=== PATIENT | male | born 1975 | race Caucasian/White ===

== ENCOUNTER 2019-07-18 05:29 | Day surgery (SDC) | payer MEDICAID, SELFPAY ==
[2019-07-18] VITALS (11 sets, daily range): BP systolic 111–135; BP diastolic 64–78; PULSE 57–72; RESP 16–20; TEMP 36.3–36.6; O2SAT 96–100
--- NOTE | 2019-07-18 | XR_ITS ---
WS: [id number] Left ankle, AP and lateral in the OR, 07/18/2019 Clinical Data: ORIF LEFT ANKLE Comparison: Left ankle, 06/28/2019 Findings: 2 orthopedic screws have been inserted into the medial malleolus to reduce the fracture. XR/XR ankle LT 2V [id number] Impression: Insertion of 2 orthopedic screws to reduce left medial malleolar fracture.
--- NOTE | 2019-07-18 | SCC_ITS ---
Procedure Done: Open reduction internal fixation left medial malleolus fracture. 0.07 seconds of fluoroscopic guidance, for a cumulative dose of 0.114 mGy, was provided to Dr. Jones by the radiology department. C-arm images of the LEFT ankle were saved for the patient's permanent record. [facility]
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
--- NOTE | 2019-07-18 06:31 | ANES.PREANES ---
Pre-Anesthetic Assessment Pre-Anesthetic Assessment: Height/Weight: Height 1.8 m Temp Pulse Resp BP Pulse Ox 97.3 F L 72 16 118/73 96 07/18/19 06:00 07/18/19 06:00 07/18/19 06:00 07/18/19 06:00 07/18/19 06:00 Proposed Procedure: Operation Date: 07/18/19 07:20 Proposed Procedures p ORIF Ankle(Left) - Bienvenido Jones DPM Last intake: Intake Last Liquid Date 07/17/19 Last Liquid Time 18:00 Last Solid Date 07/17/19 Last Solid Time 17:00 Exam: Pre-Anes Outpt Exam: alert, oriented x 3, clear to auscultation bilaterally and regular rate & rhythm Airway: Submandibular: WNL Cervical ROM: WNL MP: 1 Additional comments: teeth OK Pulmonary: Pulmonary: None reported CV/HEM: CV/HEM: None reported Hepatic: Hepatic: None reported GI: GI: GERD Comments: not well controlled Metabolic: Metabolic: None reported Musc/skel: Musc/skel: None reported Neuropsych: Neuropsych: None reported Anesthetic Plan: ASA status: II Anesthesia: Anesthesia Evaluation and General Risk of > 500 ml blood loss (7ml/kg in children): No PFSH Anesthesia PFSH: Family History Father Heart disease Other Family history of cancer Social History Smoking and tobacco status: never smoked Alcohol intake: never Substance/Drug Use: never Data Anesthesia Cardiac Studies: No Data to Display
[2019-07-18] MEDS: sodium chloride 0.9% 1,000 ML 30 ML IV (06:47)
--- NOTE | 2019-07-18 06:49 | ANES.PREANES ---
Pre-Anesthetic Assessment Pre-Anesthetic Assessment: Height/Weight: Height 1.8 m Temp Pulse Resp BP Pulse Ox 97.3 F L 72 16 118/73 96 07/18/19 06:00 07/18/19 06:00 07/18/19 06:00 07/18/19 06:00 07/18/19 06:00 Proposed Procedure: Operation Date: 07/18/19 07:20 Proposed Procedures p ORIF Ankle(Left) - Bienvenido Jones DPM Last intake: Intake Last Liquid Date 07/17/19 Last Liquid Time 18:00 Last Solid Date 07/17/19 Last Solid Time 17:00 Meds/Allergies Current Medications: Current Medications Generic Name Dose Route Start Last Admin Trade Name Freq PRN Reason Stop Dose Admin Sodium Chloride 1,000 mls @ 30 ml s/hr 07/18/19 06:00 07/18/19 06:47 Sodium Chloride 0.9% IV 07/19/19 05:59 30 mls/hr .Q24H TYE Administration PFSH Anesthesia PFSH: Family History Father Heart disease Other Family history of cancer Social History Smoking and tobacco status: never smoked Alcohol intake: never Substance/Drug Use: never Data Anesthesia Cardiac Studies: No Data to Display
[2019-07-18] MEDS: morphine 4 mg/mL SDV 1 mL 2 MG IVP (08:22)
[2019-07-18] MEDS: oxyCODONE-APAP 5-325 mg Tablet 1 TAB PO (09:15)
--- NOTE | 2019-07-18 09:46 | SUR.PHASEI ---
0814 PT TO PACU PER CART PT SLEEPY WITH GOOD RESP PT AWAKES , SAYS YES TO PAIN BUT UNABLE TO UNDERSTAND SCALE FACE SCALE USED PT QUICKLY BACK TO SLEEP VSS 0851 PT ALERT ON RA PT C/O OF PAIN FACE SCALE USED PT SMILING , WANTS JUICE TO DRINK, PT TO OPS AWAKE ALERT VSS.DISTAL TOES PINK WARM WITH CAP REFILL LESS THAN 3 SECONDS
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
== END 2019-07-18 10:05 | disposition home or self-care (01) ==
PROVIDERS: Family Provider Physician Assistant Medical; PCP Physician Assistant Medical; Visit Provider Podiatrist Foot & Ankle Surgery
PROC: (CPT 27766; principal; 2019-07-18 07:00)
DX: S82.52XA Displaced fracture of medial malleolus of left tibia, initial encounter for closed fracture (principal); W23.0XXA Caught, crushed, jammed, or pinched between moving objects, initial encounter; Z82.49 Family history of ischemic heart disease and other diseases of the circulatory system; K21.9 Gastro-esophageal reflux disease without esophagitis
CPT/HCPCS: 27766; 73600; 76000; 96365; 99221; C1713; J0690; J1100; J1885; J2001; J2270; J2405; J2704; J3010; J3490; J7030

== ENCOUNTER → 2019-07-26 13:38 | Outpatient (BNVA) | payer MEDICAID, SELFPAY | PROVIDERS: Family Provider Physician Assistant Medical; PCP Physician Assistant Medical; Visit Provider Podiatrist Foot & Ankle Surgery | DX: T81.9XXA Unspecified complication of procedure, initial encounter (principal); S99.912A Unspecified injury of left ankle, initial encounter; X58.XXXA Exposure to other specified factors, initial encounter | CPT/HCPCS: 73610 ==

== ENCOUNTER → 2019-08-01 11:48 | Outpatient (BNVA) | payer MEDICAID, SELFPAY | PROVIDERS: Family Provider Physician Assistant Medical; PCP Physician Assistant Medical; Visit Provider Podiatrist Foot & Ankle Surgery | DX: S82.52XA Displaced fracture of medial malleolus of left tibia, initial encounter for closed fracture (principal); X58.XXXA Exposure to other specified factors, initial encounter | CPT/HCPCS: 73610 ==

== ENCOUNTER → 2019-08-21 10:12 | Outpatient (BNVA) | payer MEDICAID, SELFPAY | PROVIDERS: Family Provider Physician Assistant Medical; PCP Physician Assistant Medical; Visit Provider Podiatrist Foot & Ankle Surgery | DX: S82.62XA Displaced fracture of lateral malleolus of left fibula, initial encounter for closed fracture (principal); S82.52XA Displaced fracture of medial malleolus of left tibia, initial encounter for closed fracture; X58.XXXA Exposure to other specified factors, initial encounter; Z98.890 Other specified postprocedural states | CPT/HCPCS: 73610 ==

== ENCOUNTER → 2019-09-11 11:30 | Outpatient (BNVA) | payer MEDICAID, SELFPAY | PROVIDERS: Family Provider Physician Assistant Medical; PCP Physician Assistant Medical; Visit Provider Podiatrist Foot & Ankle Surgery | DX: S82.52XA Displaced fracture of medial malleolus of left tibia, initial encounter for closed fracture (principal); Z48.89 Encounter for other specified surgical aftercare; X58.XXXA Exposure to other specified factors, initial encounter | CPT/HCPCS: 73610 ==

== ENCOUNTER 2019-11-11 12:26 | Outpatient (CLI) | payer MEDICAID, SELFPAY | END 2019-11-11 12:27 | disposition home or self-care (01) | LOC: SPT 12:27 | PROVIDERS: Family Provider Physician Assistant Medical; PCP Physician Assistant Medical; Visit Provider Podiatrist Foot & Ankle Surgery | DX: Z46.89 Encounter for fitting and adjustment of other specified devices (principal); M76.822 Posterior tibial tendinitis, left leg | CPT/HCPCS: L1902 ==

== ENCOUNTER 2023-04-30 06:48 | Emergency (ER) | payer BC, MEDICAID, SELFPAY ==
[2023-04-30 06:55] VITALS: BP 126/74; PULSE 74; RESP 18; TEMP 36.8; O2SAT 100; BMI 17.8
[2023-04-30 06:56] VITALS: BP 126/74; PULSE 68; RESP 18; TEMP 36.6; O2SAT 100; BMI 17.8
[2023-04-30 06:59] VITALS: BP 124/76
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
[2023-04-30] MEDS: lidocaine 1% INJ 10 mL (per mL) 20 ML INJECTION (07:05)
[2023-04-30] MEDS: tetanus-dipt-pertussis 0.5 mL SDV IM (07:19)
[2023-04-30] MEDS: ceFAZolin 1,000 MG in sodium chloride 0.9% (plus) 50 ML 100 MG IV (07:21)
[2023-04-30 07:29] VITALS: BP 123/77; RESP 18; TEMP 36.6; O2SAT 100
--- NOTE | 2023-04-30 08:34 | PC.NURSE ---
Cleaned left 4th and 5th digit and wrapped with xeroform and covered with kerlix.
[2023-04-30 08:35] VITALS: BP 123/77; PULSE 78; RESP 18; TEMP 36.6; O2SAT 100
--- NOTE | 2023-05-01 08:45 | DCPLANNER ---
Addendum entered by Daxa Sanchez 05/01/23 09:09: Faxed patient chart at 09:09 to [facility] Hand surgeon Dr. Sandoval Addendum entered by Daxa Sanchez 05/01/23 08:57: I called patient about his appointment for his appointment today at 2:30 pm. He is able to make that work. Patient gave me the phone number to a friend Mima [phone] to call to give the address. I attempted that phone number with no answer. Original Note: Patient called this morning about his referral to [facility] hand surgeon. I advised the patient that the referral cordinator would be working on it this morning. I personally called Dr. Sandoval office to get patient an appointment. Dr. Connolly office can see patient today at 2:30 pm. I will call patient to let him know about his appointment.
== END 2023-04-30 08:44 | disposition home or self-care (01) ==
PROVIDERS: Emergency Provider Emergency Medicine; PCP Physician Assistant Medical
DX: S61.237A Puncture wound without foreign body of left little finger without damage to nail, initial encounter (principal); S61.235A Puncture wound without foreign body of left ring finger without damage to nail, initial encounter; W33.02XA Accidental discharge of hunting rifle, initial encounter; Z23 Encounter for immunization
CPT/HCPCS: 73130; 90715; 96365; 99284; 99291; 99292; J0690

== ENCOUNTER 2024-06-19 21:13 | Emergency (ER) | payer BC, MEDICAID, SELFPAY ==
[2024-06-19 21:17] VITALS: BP 149/83; PULSE 72; RESP 18; TEMP 36.6; O2SAT 99; BMI 20.9
[2024-06-19 21:42] VITALS: BP 128/79; PULSE 79; O2SAT 98
--- NOTE | 2024-06-19 21:44 | CTR_ITS ---
PROCEDURE INFORMATION: Exam: CT Head Without Contrast Exam date and time: 06/19/2024 9:59 PM Age: 48 years old Clinical indication: Dizziness; Additional info: Vertigo TECHNIQUE: Imaging protocol: Computed tomography of the head without contrast. Radiation optimization: All CT scans at this facility use at least one of these dose optimization techniques: automated exposure control; mA and/or kV adjustment per patient size (includes targeted exams where dose is matched to clinical indication); or iterative reconstruction. COMPARISON: No relevant prior studies available. RADIATION DOSE METRICS: Total DLP (mGy-cm): 1254.14 FINDINGS: Brain: Subcortical and periventricular white matter changes consistent with small-vessel ischemic disease in the appropriate clinical setting. Small-vessel ischemic disease. No acute intracranial abnormality. Cerebral ventricles: No ventriculomegaly. Paranasal sinuses: Visualized sinuses are unremarkable. No fluid levels. Mastoid air cells: Visualized mastoid air cells are well aerated. Bones: Unremarkable. No acute fracture. Soft tissues: Unremarkable. CT/CT head wo con* [id number] IMPRESSION: 1. No acute intracranial abnormality. 2. Small-vessel ischemic disease.
--- NOTE | 2024-06-19 21:45 | W.ED.DIZZY ---
HPI - Dizziness General: Chief Complaint: Dizziness Stated Complaint: Light Headed\Feels Bad Time Seen by Provider: 06/19/24 21:41 History of Present Illness: HPI Narrative: 48-year-old man who presents the emergency room with dizziness. He says been going on for quite some time but was a bit worse today. He describes an orthostatic type dizziness with standing but he also describes some vertigo type symptoms. No focal motor deficits. No altered mental status. No nystagmus. No nausea or vomiting. No chest pain. No abdominal pain. Related Data Home Medications Medication Instructions Recorded Confirmed esomeprazole magnesium 20 mg 10 mg PO DAILY 07/17/19 11/27/20 capsule,delayed release (Nexium) esomeprazole magnesium 20 mg 20 mg PO QDAY 08/01/19 11/27/20 capsule,delayed release (Nexium) Previous Rx's Medication Instructions Recorded ondansetron HCl 8 mg tablet 8 mg PO TID PRN nausea and 07/18/19 (Zofran) vomiting #30 tabs oxycodone-acetaminophen 7.5 mg-325 1 tab PO Q4H PRN pain #40 tabs 07/18/19 mg tablet (Percocet) supinator #1 ea 11/06/19 hydrocodone 5 mg-acetaminophen 325 1 tab PO Q8H PRN pain #14 tabs 04/30/ mg tablet Allergies Allergy/AdvReac Type Severity Reaction Status Date / Time No Known Allergies Allergy Verified 11/27/20 12:42 Review of Systems Narrative: Constitutional symptoms: Negative except as documented in HPI. Skin symptoms: Negative except as documented in HPI. Eye symptoms: Negative except as documented in HPI. ENMT symptoms: Negative except as documented in HPI. Respiratory symptoms: Negative except as documented in HPI. Cardiovascular symptoms: Negative except as documented in HPI. Gastrointestinal symptoms: Negative except as documented in HPI. Genitourinary symptoms: Negative except as documented in HPI. Musculoskeletal symptoms: Negative except as documented in HPI. Neurologic symptoms: Negative except as documented in HPI. Psychiatric symptoms: Negative except as documented in HPI. Endocrine symptoms: Negative except as documented in HPI. [facility] PFSH: Medical History (Updated 06/19/24 @ 23:00 by Allison Watters MD) Gastroesophageal reflux Gastritis Gallbladder hypertrophy Dysphagia Bowel habit changes Right scapula fracture Surgical History Hx of hand surgery History of repair of hiatal hernia Hx of circumcision Family History Father Heart disease Other Family history of cancer Social History Smoking and tobacco/nicotine status: never used tobacco/nicotine Alcohol intake: never Substance/Drug Use: never Physical Exam Narrative: EXAM NARRATIVE: General: Alert, no acute distress. Skin: Warm, dry. Head: Normocephalic, atraumatic. Neck: Supple, trachea midline. Eye: Extraocular movements are intact. Ears, nose, mouth and throat: mucosa moist. Cardiovascular: Regular, Normal peripheral perfusion. Respiratory: Lungs are clear to auscultation, respirations are non-labored, breath sounds are equal, Symmetrical chest wall expansion. Gastrointestinal: Soft, Nontender, Non distended Musculoskeletal: Normal ROM, no deformity. Neurological: Alert and oriented, No focal neurological deficit observed. Psychiatric: Cooperative, appropriate mood & affect. Course Vital Signs: Vital signs: Vital Signs Temperature 97.8 F 06/19/24 21:17 Pulse Rate 79 06/19/24 21:42 Respiratory Rate 18 06/19/24 21:17 Blood Pressure 128/79 06/19/24 21:42 Pulse Oximetry 98 06/19/24 21:42 Oxygen Delivery Me thod Room Air 06/19/24 21:17 MDM - Dizziness Medical Decision Making Medical decision making: Differential diagnosis including but not limited to and based on the above HPI, review of systems and physical exam: for patient with complaint of dizziness: stroke, hypotension, hypertension, infection, vertigo, orthostasis Orders placed to evaluate differential diagnosis based on the above differential, HPI and physical exam EKG: Time 2152. Rate 67. Normal sinus rhythm, No ST-T changes, no ectopy, normal ND & QRS intervals, This was reviewed and interpreted by myself the ER physician at 2155. CT head: No acute intracranial process. no intracranial hemorrhage, no evidence of infarct. no evidence of acute fracture.This was reviewed and interpreted by myself the ER physician. Lab Review: Laboratory results were reviewed and interpreted by myself the emergency room physician. No leukocytosis. No anemia. No renal failure. Urinalysis is negative for infection I reviewed the patient's medical record. Reexamination: Patient remained stable. No increased work of breathing. No altered mental status. No focal motor deficits. Assessment and plan: Dizziness - Discharged home - Discussed plan with patient. Answered any questions. - Evaluation and treatment of this problem were appropriate in the emergency setting. Lab Data 06/19/24 22:18 06/19/24 22:[address] 06/19/24 21:44 IMPRESSION: 1. No acute intracranial abnormality. 2. Small-vessel ischemic disease. Laboratory Results WBC 5.76 10^3/uL (3.29-11.43) 06/19/24 22:18 RBC 4.54 10^6/uL (3.85-5.65) 06/19/24 22:18 Hgb 13.70 g/dL (11.27-16.99) 06/19/24 22:18 Hct 40.3 % (37-53) 06/19/24 22:18 MCV 88.8 fl (82-101) 06/19/24 22:18 MCH 30.2 pg (27-33) 06/19/24 22:18 MCHC 34.0 g/dL (30-55) 06/19/24 22:18 RDW 11.9 % (12.1-15.1) L 06/19/24 22:18 Plt Count 211 10^3/cmm (157-399) 06/19/24 22:18 MPV 8.6 fL (7.4-10.4) 06/19/24 22:18 Neut % (Auto) 63.4 % 06/19/24 22:18 Lymph % (Auto) 25.9 % 06/19/24 22:18 [place] % (Auto) 7.6 % 06/19/24 22:18 Eos % (Auto) 1.9 % 06/19/24 22:18 Baso % (Auto) 0.5 % 06/19/24 22:18 Neut # (Auto) 3.65 10^3/uL (1.8-7.7) 06/19/24 22:18 Lymph # (Auto) 1.5 10^3/uL (0.8-4.8) 06/19/24 22:18 [place] # (Auto) 0.4 10^3/uL (0.2-0.9) 06/19/24 22:18 Eos # (Auto) 0.1 10^3/uL (0.0-0.8) 06/19/24 22:18 Baso # (Auto) 0.0 10^3/uL (0.0-0.1) 06/19/24 22:18 Nucleated RBC % (auto) 0 % 06/19/24 22:18 Nucleated RBCs # 0.0 /100WBC 06/19/24 22:18 Sodium 142 mmol/L (136-145) 06/19/24 22:18 Potassium 3.9 mmol/L (3.5-5.1) 06/19/24 22:18 Chloride 107 mmol/L (98-107) 06/19/24 22:18 Carbon Dioxide 25 mmol/L (22-29) 06/19/24 22:18 Anion Gap 13.9 (5-19) 06/19/24 22:18 BUN 14 mg/dL (6-20) 06/19/24 22:18 Creatinine 0.8 mg/dL (0.7-1.2) 06/19/24 22:18 GFR Calculation 103.6 mL/min (90-130) 06/19/24 22:18 Glucose 106 mg/dL (65-115) 06/19/24 22:18 Calculated Osmolality 295 mOsm/kg (285-295) 06/19/24 22:18 Calcium 8.4 mg/dL (8.5-10.5) L 06/19/24 22:18 Total Bilirubin 0.4 mg/dL (0.15-1.2) 06/19/24 22:18 AST 24 U/L (0-40) 06/19/24 22:18 ALT 21 U/L (0-41) 06/19/24 22:18 Alkaline Phosphatase 97 U/L (40-130) 06/19/24 22:18 Total Protein 6.5 g/dL (6.6-8.7) L 06/19/24 22:18 Albumin 4.1 g/dL (3.5-5.2) 06/19/24 22:18 Globulin 2.4 g/dL (1.3-4.6) 06/19/24 22:18 Urine Color Yellow (Yellow) 06/19/24 22:14 Urine Appearance Cloudy (CLEAR) A 06/19/24 22:14 Urine pH 6.0 (5-7) 06/19/24 22:14 Ur Specific [place] 1.029 (1.005-1.030) 06/19/24 22:14 Urine Protein Trace (Negative) A 06/19/24 22:14 Urine Glucose (UA) 1+ (Normal) H 06/19/24 22:14 Urine Ketones Negative (Negative) 06/19/24 22:14 Urine Blood Negative (Negative) 06/19/24 22:14 Urine Nitrate Negative (Negative) 06/19/24 22:14 Urine Bilirubin Negative (Negative) 06/19/24 22:14 Urine Urobilinogen 1.0 mg/dL (Negative) 06/19/24 22:14 Ur Leukocyte Esterase Negative (Negative) 06/19/24 22:14 Urine RBC 0-2 /hpf (0-2) 06/19/24 22:14 Urine WBC 0-5 /hpf (0-5) 06/19/24 22:14 Ur Squamous Epith Cells 0-5 /hpf (0-5) 06/19/24 22:14 Amorphous Sediment Not Reportable 06/19/24 22:14 Urine Bacteria None seen /hpf (NONE) 06/19/24 22:14 Hyaline Casts 2.46 /lpf 06/19/24 22:14 All radiology interpretation(s) finalized by discharge Discharge Plan Discharge Patient Disposition: Home Clinical Impression: Dizziness Condition: Stable Prescriptions: No Action lidocaine HCl [Xylocaine] 10 mg/mL (1 %) solution 1.5 ml IM ONCE Qty: 1 0RF ceftriaxone 1 gram recon soln 1 gm IM ONCE Qty: 1 0RF dexamethasone sodium phosphate 10 mg/mL solution 10 mg IM ONCE Qty: 1 0RF esomeprazole magnesium [Nexium] 20 mg capsule,delayed release(DR/EC) 20 mg PO QDAY (DME) supinator Qty: 1 0RF Rx Instructions: As directed esomeprazole magnesium [Nexium] 20 mg Capsule,Delayed Release(Dr/Ec) 10 mg PO DAILY Percocet 7.5-325 mg tablet 1 tab PO Q4H PRN (Reason: pain) Qty: 40 0RF Zofran 8 mg tablet 8 mg PO TID PRN (Reason: nausea and vomiting) Qty: 30 0RF hydrocodone-acetaminophen 5-325 mg tablet 1 tab PO Q8H PRN (Reason: pain) Qty: 14 0RF Discharge Orders: Discharge ED (Routine); Ordered 06/19/24 Ordered By: Allison Watters Discharge Diet: Usual diet Discharge Activity: Resume usual activity Patient Instructions: Lightheadedness (ED), Dizziness (ED), Opioid Safety, Pain Management Activity Restrictions/Additional Instructions: Thank you for choosing [facility] for your healthcare needs today. Please realize this is an emergency room and that we are providing you with a medical screening exam and this may not be complete and all inclusive of all the testing and or work up that you may need to determine your ailment or severity of your illness. You have been screened and evaluated and felt safe for discharge. Health conditions do change or evolve sometimes and as such it is important that you follow up with your Primary Doctor to be re checked, 3-5 days is a general good time frame for follow up. You are always welcome to return to the ED for re assessment if your symptoms are worsening or you have new concerns Coding Level of Care Code ED Aligning Inspector for Frank Brock
[2024-06-19 21:51] VITALS: BP 122/68; PULSE 70; O2SAT 98
--- NOTE | 2024-06-19 21:52 | ECG_ITS ---
[facility] Test Date: 2024-06-19 Pat Name: Sean Gibson Department: Room: Gender: Male [employer] Specialist: : [id number] Requested By: Allison Suarez Order Number: [id number] Quigley MD: Kevin Montemayor M.D. Measurements Intervals [place] Rate: 67 P: 0 [place]: 0 QRS: 85 QRSD: 86 T: 86 QT: 371 QTc: 394 Interpretive Statements ECTOPIC ATRIAL RHYTHM No previous ECG available for comparison Electronically Signed On 06-20-2024 14:43:24 [employer] by Kevin Montemayor M.D. [id number]
[2024-06-19 22:26] LABS: Basophils % 0.5 %; Eosinophils # 0.1 10^3/uL (0.0-0.8); Eosinophils % 1.9 %; Hematocrit 40.3 % (37-53); Lymphocytes # 1.5 10^3/uL (0.8-4.8); Lymphocytes % 25.9 %; Mean Corpuscular Hemoglobin 30.2 pg (27-33); Mean Corpuscular Volume 88.8 fl (82-101); Mean Platelet Volume 8.6 fL (7.4-10.4); Monocytes # 0.4 10^3/uL (0.2-0.9); Monocytes % 7.6 %; Neutrophils # 3.65 10^3/uL (1.8-7.7); Neutrophils % 63.4 %; Nucleated Red Blood Cells % 0 %; Platelet Count 211 10^3/cmm (157-399); Red Blood Count 4.54 10^6/uL (3.85-5.65); Red Cell Distribution Width 11.9 % (12.1-15.1); White Blood Count 5.76 10^3/uL (3.29-11.43)
[2024-06-19 22:31] LABS: Bilirubin Urine Negative (Negative); Blood Urine Negative (Negative); Glucose Urine UA 1+ (Normal); Ketones Urine Negative (Negative); Leukocyte Esterase Urine Negative (Negative); Nitrate Urine Negative (Negative); Protein Urine Trace (Negative); Specific Gravity, Urine 1.029 (1.005-1.030); Urine Appearance Cloudy (CLEAR); Urine Color Yellow (Yellow)
[2024-06-19 22:33] LABS: Bacteria Urine None Seen /hpf; Hyaline Casts Urine 2.46 /lpf; RBC Urine 0-2 /hpf (0-2); Squamous Epithelial Cell Urine 0-5 /hpf (0-5); WBC Urine 0-5 /hpf (0-5)
[2024-06-19 22:51] VITALS: BP 134/76; PULSE 69; O2SAT 99
[2024-06-19 22:51] LABS: Alanine Aminotransferase 21 U/L (0-41); Albumin Level 4.1 g/dL (3.5-5.2); Alkaline Phosphatase 97 U/L (40-130); Anion Gap 13.9 (5-19); Aspartate Amino Transferase 24 U/L (0-40); Blood Urea Nitrogen 14 mg/dL (6-20); Calcium 8.4 mg/dL (8.5-10.5); Carbon Dioxide 25 mmol/L (22-29); Chloride 107 mmol/L (98-107); Creatinine Clr Calc Pharmacy 116.8887; Globulin 2.4 g/dL (1.3-4.6); Glomerular Filtration Rate 103.6 mL/min (90-130); Glucose 106 mg/dL (65-115); Osmolality Calculated 295 mOsm/kg (285-295); Potassium 3.9 mmol/L (3.5-5.1); Sodium 142 mmol/L (136-145); Total Bilirubin 0.4 mg/dL (0.15-1.2); Total Protein 6.5 g/dL (6.6-8.7)
[2024-06-19 23:11] VITALS: BP 133/69; PULSE 75; O2SAT 99
== END 2024-06-19 23:14 | disposition home or self-care (01) ==
PROVIDERS: Emergency Provider Emergency Medicine
DX: R42 Dizziness and giddiness (principal)
CPT/HCPCS: 36415; 70450; 80053; 81001; 85025; 93005; 99284